=== PATIENT | male | born 1945 | race Caucasian/White ===

== ENCOUNTER 2021-03-11 20:14 | Emergency (ER) | payer OTHER ==
[~2021-03-11] VITALS: Ht 177.8 cm; Wt 83.5 kg
[2021-03-11 21:55] LABS: ABSOLUTE LYMPHOCYTES 0.6 thou/uL (0.8-5.3); ABSOLUTE MONOCYTES 0.8 thou/uL (0.0-1.2); ABSOLUTE NEUTROPHILS 4.1 thou/uL (1.6-8.1); BASOPHILS 0.9 %; EOSINOPHILS 0.4 %; HEMOGLOBIN 10.9 gm/dL (14.0-18.0); LYMPHOCYTES 10.7 %; MCH 32.1 pg (26.0-34.0); MCHC 32.2 g/dL (28.0-37.0); MCV 99.7 fL (80.0-100.0); MONOCYTES 13.7 %; MPV 10.8 fl. (7.2-11.1); NUCLEATED RBCS 0 /100WBC; PLATELET COUNT* 95 thou/uL (150-400); POLYS 74.3 %; RBC 3.41 mil/uL (4.50-6.00); RDW-CV 28.5 % (10.5-14.5); WBC 5.5 thou/uL (4.0-11.0)
[2021-03-11 21:59] LABS: CALCIUM 7.5 mg/dL (8.5-10.1); CREATININE 1.6 mg/dL (0.6-1.3)
[2021-03-11 22:00] LABS: POTASSIUM 5.1 mmol/L (3.5-5.1)
[2021-03-11 22:04] LABS: ALBUMIN 3.7 g/dL (3.4-5.0); TOTAL BILIRUBIN 0.5 mg/dL (<0.1-1.0); TOTAL PROTEIN 6.6 g/dL (6.4-8.2)
[2021-03-11] MEDS ORDERED: BENTYL 10 MG CA10 M1 PO ×2 (23:10→23:11)
[2021-03-11] MEDS ORDERED: CITRATE OF MAG296 M1 PO (23:10)
[2021-03-11] MEDS ORDERED: ZOFRAN ODT4 MG PO ×2 (23:10→23:11)
[2021-03-12 01:44] VITALS: BP 119/58
[2021-03-12 01:50] LABS: ANISOCYTOSIS 3+; SCHISTOCYTES Occasional; TARGET CELLS Occasional
[2021-03-12 01:51] LABS: BURR CELLS Occasional; HYPOCHROMASIA 1+
[2021-03-12 01:52] LABS: LARGE PLATELETS RARE; OVALOCYTES Occasional; PLATELET ESTIMATE DECREASED
== END 2021-03-12 01:44 | disposition home or self-care (01) ==
LOC: M.ERS 20:14
PROVIDERS: Nurse Practitioner Family
DX: K59.00 Constipation, unspecified (principal); Z88.8 Allergy status to other drugs, medicaments and biological substances; Z96.642 Presence of left artificial hip joint